=== PATIENT | female | born 1980 | race Two or more races ===

== ENCOUNTER 2019-03-06 08:46 | Emergency (ER) | payer OTHER ==
[~2019-03-06] VITALS: Ht 162.6 cm; Wt 59.0 kg
[2019-03-06] MEDS ORDERED: ZOLOFT100 MG (08:56)
[2019-03-06] MEDS ORDERED: KETO10TA2 PO (09:49)
[2019-03-06] MEDS ORDERED: ORPHENADRINE C100 MG PO (09:49)
== END 2019-03-06 10:13 | disposition home or self-care (01) ==
LOC: ER 08:46
DX: M54.89 Other dorsalgia (principal); R07.89 Other chest pain

== ENCOUNTER 2024-05-01 14:54 | Emergency (ER) | payer OTHER ==
[~2024-05-01] VITALS: Ht 160 cm; Wt 56.7 kg
[~2024-05-01 14:54] MED LIST: KETO10TA2 PO; ORPHENADRINE C100 MG PO; ZOLOFT100 MG
[2024-05-01] MEDS ORDERED: LEXAPRO20 MG PO (15:14)
[2024-05-01] MEDS ORDERED: ACETAMINOPHEN WITH CODEINE 1 UDTAB TABLET PO ONE (16:30)
[2024-05-01] MEDS ORDERED: CLINDAMYCIN PHOSPHATE 150 MG/ML (900mg) IV ONE (16:30)
[2024-05-01 17:09] LABS: HEMATOCRIT 41.9 % (36.0-45.00); HEMOGLOBIN 14.3 g/dL (12.0-15.00); MEAN CELL VOLUME 93.2 fL (80.00-100.00); MEAN CORPUSCULAR HEMOGLOBIN 31.8 pg (27.00-32.0); MEAN CORPUSCULAR HGB CONC 34.1 g/dl (32.0-36.0); PLATELET COUNT 377 K/uL (150-450); RED BLOOD COUNT 4.49 M/uL (4.00-6.00); RED CELL DISTRIBUTION WIDTH 13.4 % (11.5-14.5)
== END 2024-05-01 20:10 | disposition home or self-care (01) ==
LOC: ER 14:55
PROVIDERS: Emergency Medicine
DX: K04.7 Periapical abscess without sinus (principal)